=== PATIENT | female | born 1940 | race Caucasian/White ===

== ENCOUNTER → 2018-01-29 | Outpatient (CLI) | payer MEDICARE, OTHER ==
[2018-01-29 10:19] LABS: AUTOMATED NEUTROPHIL # 2.3 TH/MM3 (1.8-7.7); BASOPHIL % 0.4 % (0.0-2.0); EOSINOPHIL # 0.1 TH/MM3 (0-0.4); EOSINOPHIL % 1.7 % (0.0-4.0); HEMATOCRIT 36.7 % (35.0-46.0); HEMO FLAGS DIFF FINAL; HEMOGLOBIN 12.3 GM/DL (11.6-15.3); LYMPH % 27.9 % (9.0-44.0); MEAN CELL VOLUME 94.2 FL (80.0-100.0); MEAN CORPUSCULAR HEMOGLOBIN 31.6 PG (27.0-34.0); MEAN CORPUSCULAR HGB CONC 33.5 % (32.0-36.0); MEAN PLATELET VOLUME 9.4 FL (7.0-11.0); MONOCYTE # 0.3 TH/MM3 (0-0.9); PLATELET COUNT 170 TH/MM3 (150-450); RED CELL DISTRIBUTION WIDTH 13.9 % (11.6-17.2); WHITE BLOOD COUNT 3.7 TH/MM3 (4.0-11.0)
[2018-01-29 10:30] LABS: ALBUMIN 3.9 GM/DL (3.4-5.0); ANION GAP 5 MEQ/L (5-15); AST (GOT) 18 U/L (15-37); BICARBONATE 30.6 MEQ/L (21.0-32.0); BLOOD UREA NITROGEN 21 MG/DL (7-18); CALCIUM 9.3 MG/DL (8.5-10.1); CHLORIDE 108 MEQ/L (98-107); CHOLESTEROL 250 MG/DL (120-200); CREATININE 0.98 MG/DL (0.50-1.00); GLOMERULAR FILTRATION RATE 55 ML/MIN (>89); GLUCOSE,FASTING 89 MG/DL (74-99); POTASSIUM 4.7 MEQ/L (3.5-5.1); SODIUM (NA) 144 MEQ/L (136-145)
[2018-01-29 10:34] LABS: ALKALINE PHOSPHATASE 72 U/L (45-117); ALT (GPT) 21 U/L (10-53); CHOLESTEROL/ HDL RATIO 2.57 RATIO; LDL CHOLESTEROL 140 MG/DL (0-99); TOTAL BILIRUBIN ADULT 0.5 MG/DL (0.2-1.0); TOTAL PROTEIN 7.2 GM/DL (6.4-8.2); TRIGLYCERIDES 63 MG/DL (42-150)
== END ==
LOC: PLAB 06:44
DX: E78.2 Mixed hyperlipidemia (principal); I10 Essential (primary) hypertension; K21.9 Gastro-esophageal reflux disease without esophagitis; M81.0 Age-related osteoporosis without current pathological fracture
CPT/HCPCS: 36415; 80053; 80061; 82306; 85025

== ENCOUNTER → 2018-02-06 | Outpatient (CLI) | payer MEDICARE, OTHER ==
[~2018-02-06] MED LIST: ACET325 PO; CALCCHW9 PO; CARD8TAB6 PO; DIPH1TAB36 PO; FIORIC PO; FISH1200 PO; FOSA70TA PO; LUTE6TAB2 PO; MAGN250T5 PO; OXYC1SOL5 PO; RIVA10 PO; SCOP1PAT TD; TAB-TAB PO; Z.0.COMMODE-3:1; Z.0.WALKERFRONT
[2018-02-06 14:04] LABS: BILIRUBIN, URINE NEG (NEG); BLOOD, URINE NEG (NEG); GLUCOSE,URINE NEG (NEG); KETONE, URINE NEG (NEG); MUCUS URINE FEW /lpf (OCC); NITRITE,URINE NEG (NEG); SQUAMOUS EPITHELIAL CELL URINE 1 /hpf (0-5); URINE COLOR YELLOW (YELLW/STRAW); URINE LEUKOCYTE ESTERASE NEG (NEG)
== END ==
LOC: PLAB 09:13
PROVIDERS: ATTEND Family Medicine
DX: R31.21 Asymptomatic microscopic hematuria (principal)
CPT/HCPCS: 81001

== ENCOUNTER 2018-04-09 05:27 | Inpatient (IN) ==
[2018-04-09] MEDS ORDERED: Chlorhexidine Gluconate 2% 1 Pack (2 Cloths) TOPICAL SCH (06:15)
[2018-04-09] MEDS ORDERED: Metoprolol Tartrate 25 MG Tablet PO SCH (06:15)
[2018-04-09] MEDS ORDERED: Chlorhexidine 4% Topical 120 APPLIC/120 ML Bottle TOPICAL SCH (06:15)
[2018-04-09] MEDS ORDERED: Bupivacaine/Dextrose 0.75% Inj 2 ML Ampul ONE (06:31)
[2018-04-09] MEDS ORDERED: [UNRECOGNIZED DRUG - OTHER] T-DERMAL PRN (06:44)
[2018-04-09] MEDS ORDERED: Sodium Chlor 0.9% Inj 500 ML IV.SIG SCH (07:00)
[2018-04-09] MEDS ORDERED: SODIUM CHLOR 0.9% IV.SIG SCH ×2 (07:00→10:00)
[2018-04-09] MEDS ORDERED: TRANEXAMIC ACID IV.SIG SCH ×2 (07:00→10:00)
[2018-04-09] MEDS ORDERED: Sodium Chlor 0.9% Inj 40 ML, Bupivacaine Liposo PF 1.3% Inj 20 ML P-ARTICULR SCH ×2 (07:00)
[2018-04-09] MEDS ORDERED: ceFAZolin 2 GM Premix Inj 2 GM/50 ML PIGGYBACK IV.SIG SCH (07:00)
[2018-04-09] MEDS ORDERED: Scopalamine 1.5 MG Patch T-DERMAL PRN (08:37)
[2018-04-09] MEDS ORDERED: OMEGA DHA EPA FISH OIL PO SCH (09:00)
[2018-04-09] MEDS ORDERED: Aluminum/Magnesium/Simethacone Susp 30 ML UDC PO PRN (09:25)
[2018-04-09] MEDS ORDERED: Morphine Inj 4 MG/ML Vial IV.PUSH PRN (09:25)
[2018-04-09] MEDS ORDERED: Bisacodyl 10 MG Supp RECTAL PRN (09:25)
[2018-04-09] MEDS ORDERED: Tranexamic Acid Inj 0 MG in Sodium Chlor 0.9% Inj 100 ML IV.SIG ONE (09:25)
[2018-04-09] MEDS ORDERED: Post-op Orders (for Pharmacy) OTHER STA (09:25)
[2018-04-09] MEDS ORDERED: Acetaminophen 325 MG Tablet PO PRN (09:25)
--- NOTE | 2018-04-09 09:34 | P.OP ---
- Preoperative Diagnosis (1) Primary osteoarthritis of left hip - Postoperative Diagnosis (1) Primary osteoarthritis of left hip Date of procedure: 04/09/18 Procedure: Left total hip arthroplasty using Patterson prosthesis. Anesthesia: GETA, local (With Exparel) Surgeon: Carmelo Floyd MD Groundskeeper: ALEXA Castro Estimated blood loss (mL): 150 Pathology: none sent Operation and Findings: Indications and Findings: This 77-year-old woman has had long-standing pain in her left hip nonresponsive to conservative measures including anti-inflammatory agents, analgesics, activity modification and the use of ambulatory aids. Physical findings showed limitation of range of motion in the hip with tenderness on range of motion and antalgic gait. X-rays showed severe osteoarthritis in the hip with eburnation, osteophytes and degenerative cysts. Operative findings: There is severe osteoarthritis in the left hip with loss of articular cartilage to expose subchondral bone. There was subchondral sclerosis. There are osteophytes. Implants: The acetabular component was a Tritanium cluster shell size 50 mm external diameter with a 36 mm inner diameter, 0 lip, X3 polyethylene liner. The femoral component was Accolade 2 with a 127 neck angle. The femoral head was Biolox Delta, 36 mm external diameter with a -2 mm offset. The patient was brought to the clean air operating suite and a general endotracheal anesthetic was administered. The patient was positioned into a lateral position with the operative hip up on a Biomet lateral positioner. The hip and lower extremity were prepped with alcohol, Hibiclens and ChloraPrep and draped in the usual manner with the hip draped free. Patient received prophylactic antibiotics preoperatively. The patient also received tranexamic acid preoperatively. An appropriate timeout procedure was carried out. An incision was made from the midportion of the greater trochanter proximally and posteriorly paralleling the fibers of the gluteus mildred. The incision was deepened through subcutaneous tissues down to the fascia gabo and gluteus fascia. The gluteus fascia was then split longitudinally in line with its fibers up to the upper portion of the fascia gabo. With wound towels in place, the Charnley retractor was inserted. The sciatic nerve was identified and protected throughout the procedure. Dissection was then carried down to the interval between the gluteus minimus and the piriformis. A retractor was inserted. The piriformis and obturator conjoined tendon was released from the greater trochanter and reflected off the capsule. A capsulotomy was made longitudinally along the femoral neck to the base of the femoral neck and then curved distally along the posterior aspect of the greater trochanter. The hip was internally rotated. Further release of the external rotators was carried out exposing the hip. The hip was dislocated. The femoral neck was transected at the appropriate level using the oscillating saw placement of appropriate retractors. The femoral head was removed. Preparation of the femur was initiated with a box osteotome followed by a curet to identify the medullary canal. Broaching was then initiated with the size 0 broach and went in 1 size increments up to size 2. The broach handle was removed. The femoral neck was then trimmed with a calcar planar. Attention was then directed to the acetabulum. Soft tissues were debrided from the acetabulum. Retractors were placed about the acetabulum. Reaming was then initiated with the 43 millimeter reamer and went in 1-2 mm increments up to the 50 millimeter diameter reamer. A trial reduction with the 50 millimeter trial prosthesis was carried out. When this was deemed to be appropriate, the trial prosthesis was removed. The acetabulum was irrigated and cleaned. The actual prosthesis as noted above was impacted into place and seated appropriately. Drill holes were made and sounded. Appropriate sized screws were inserted to stabilize the acetabulum further. The liner as noted above was inserted into the acetabular shell and impacted into place. Osteophytes were trimmed from the acetabulum. Local anesthetic was administered throughout the area of the acetabulum and anterior aspect of the femur. The trial neck was placed on the broach for the above-noted prosthesis. The femoral head trial was placed onto the femoral neck . A trial reduction was carried out. Adjustment was made as needed. The stability, leg length and motion were excellent. There was no pistoning. The trial prosthesis was removed. The broach was removed. The femoral component was impacted into the medullary canal of the femur after irrigation and suctioning. When this was appropriately seated a trial reduction was again carried out with the trial prosthesis. There was no pistoning. The leg length was appropriate. The stability and motion were excellent. The trial prosthesis was then removed. After cleaning and drying the trunion of the femoral component, the above-noted femoral head was impacted onto the trunnion. The hip was reduced. The stability and mobility were again checked along with leg lengths as noted above. The hip was positioned appropriately and closure commenced after the remainder of the local anesthetic was injected throughout the hip. The external rotators and capsule were repaired with #1 Vicryl interrupted transosseous sutures with a Krakw technique to reattach the external rotators and capsule to the posterior aspect of the greater trochanter. The capsule itself on the superior aspect was closed with #1 Vicryl interrupted [id number] sutures. The sciatic nerve was inspected. The fascia gabo and gluteus fascia were repaired with #1 Vicryl interrupted [id number] sutures. The subcutaneous tissues were closed with 2-0 Vicryl interrupted simple sutures with buried knots. The skin was closed with a continuous subcuticular closure of 4-0 Monocryl. The wound was then approximated with Dermabond Prineo. A dry sterile dressing was applied to the hip. A knee immobilizer was applied to the leg. The patient was transferred from the operating room to the recovery room in satisfactory condition having tolerated the procedure well. Counts are correct. Specimens: None. Estimated blood loss: 150 mL
[2018-04-09] MEDS ORDERED: fentaNYL Citrate Inj 100 MCG/2 ML Ampul ONE (09:45)
--- NOTE | 2018-04-09 09:54 | P.DCO ---
- Physical Therapy Physical Therapy: Gait training Hip: Total hip, Protocol: Left, Posterior hip precautions, Progress to weight bearing Canvas Knee Splint: When in bed with 2 pillows between thighs Left Lower Extremity Weight Bearing: Weight bearing as tolerated Left Lower Extremity Range of Motion: Active ROM - Nursing Dressing changes: Daily dressing change, Coverderm/Primapore Additional instructions: Do not remove Dermabond Prineo. - Certification Need for Home Health services: I have seen patient Jesi Chang on 04/09/18. My clinical findings support the need for the requested home health care services because: Need for Home Health Services: Limited ability to care for self, High risk of falls Homebound Certification: I certify that my clinical findings support that this patient is homebound because: Homebound Certification: Post-op weakness, Unsteady gait/balance, Unsafe to leave home unassisted
--- NOTE | 2018-04-09 11:17 | XR ---
EXAM DATE: 04/09/2018 10:39 AM EDT AGE/SEX: 77 years / Female INDICATIONS: Post op left hip surgery CLINICAL DATA: This is the patient's initial encounter. Patient reports that signs and symptoms have been present for 1 day and indicates a pain score of 0/10. MEDICAL/SURGICAL HISTORY: None. None. COMPARISON: POI, CT ABDOMEN AND PELVIS W/ CONTRAST, 01/09/2015. . FINDINGS: AP of the pelvis and lateral view of the left hip demonstrates metallic hardware in place at the left hip joint with a single screw in the acetabular component and a noncemented femoral component. There is adjacent soft tissue air, as expected. No unexpected finding is visualized. There is mild osteoar thritis of the right hip joint. CONCLUSION: Expected changes following recent left total hip arthroplasty, as above. Electronically signed by: Barry Lewis MD 04/09/2018 11:15 AM EDT
[2018-04-09] MEDS ORDERED: Neostigmine Inj 5 MG/5 ML Syringe IV.PUSH ONE (12:00)
[2018-04-09] MEDS ORDERED: Glycopyrrolate Inj 1 MG/5 ML Syringe IV.PUSH ONE (12:00)
[2018-04-09] MEDS ORDERED: Lidocaine PF 1% Inj 5 ML Syringe INFILTRATN ONE (12:00)
[2018-04-09] MEDS ORDERED: Phenylephrine/NS 1000 MCG/10ML Syringe IV.PUSH ONE (12:00)
--- NOTE | 2018-04-09 15:09 | P.CON ---
History of Present Illness Service: [facility] Consult date: 04/09/18 Requesting Physician: Carmelo Floyd Reason for Consult: Assist with medical management post op Primary Care Provider: Mone Hines MD Family Provider: Mone Hines MD Chief Complaint: Left Hip Pain History of Present Illness: Patient is a 77 yo female with PMHX of HTN, GERD, migraines, hiatal hernia who came in for elective surgery for Left hip osteoarthritis. She is S/P Left Total Hip Arthroplasty by Dr. Floyd, 04/09/18. Patient states she is doing okay aside from left hip pain. Unable to tolerate sitting up for possible palliative time. States that she needs more pain medication, rated pain as 10/ 10, aggravated by movement, aggravated by sitting up, unrelieved by previous pain medication, pain is described as sharp, aching. Otherwise, denies SOB/ dyspnea. Denies chest pain, palpitations, headaches, dizziness. Denies fevers, chills, n/v/d. Review of Systems All other systems reviewed negative except as stated in HPI [facility] - History History Provided By: Patient - Medical History Medical History: Medical History (Last Updated 04/09/18 @ 16:10 by JOE Resendez) Neuropathy Hypertension Left hip pain Migraine - Surgical History Surgical History: Surgical History (Last Updated 03/26/18 @ 11:27 by Renetta Montez RN) History of arthroplasty of left knee History of partial hysterectomy Hx of breast biopsy Hx of inguinal hernia surgery Hx of sinus surgery - Family History Family History: Family History (Last Updated 04/09/18 @ 15:27 by JOE Resendez) Mother Family history of breast cancer Father Stroke Heart attack - Tobacco History Second Hand Smoke Exposure: Yes Smoking Status: Never smoker - Alcohol History How Often Do You Have a Drink Containing Alcohol: Monthly or less - Substance Use History Substance History: No History of Abuse - Travel History Recent Travel in the [place] Within the Last 8 Weeks: No Recent Travel Out of the Country Within the Last 8 Weeks: No Medications and Allergies Active Medications: Active Medications Acetaminophen (Tylenol) 650 mg PO Q6H PRN PRN Reason: Pain Less Than 3 On Scale Acetaminophen/Butalbital/Caffeine (Fioricet 50-325-40) 1 tab PO Q4H PRN PRN Reason: Migraine Headache Hydrocodone Bitart/Acetaminophen ([place] 7.5/325) 1 tab PO Q4H PRN PRN Reason: PAIN SCALE 4 TO 6 MODERATE Last Admin: 04/09/18 14:28 Dose: 1 tab Hydrocodone Bitart/Acetaminophen ([place] 7.5/325) 2 tab PO Q6H PRN PRN Reason: PAIN SCALE 7 TO 10 SEVERE Al Hydrox/Mg Hydrox/Simethicone (Mag-Al Plus Susp Liq) 30 ml PO Q6H PRN PRN Reason: INDIGESTION Al Hydroxide/Mg Hydroxide (Milk Of Magnesia Liq) 30 ml PO BID PRN PRN Reason: Mild Constipation Aspirin (Aspirin Chew) 81 mg PO BID [facility] Bisacodyl (Dulcolax Supp) 10 mg RECTAL DAILY PRN PRN Reason: SEVERE CONSITIPATION Chlorhexidine Gluconate (Hibiclens 4% Topical) 1 applicatio TOPICAL ONCE [facility] Stop: 04/13/18 06:14 Chlorhexidine Gluconate (Chlorhexidine 2% Cloth) 3 pack TOPICAL [employer] [facility] Stop: 04/12/18 06:11 Cyanocobalamin (Vitamin B12) 1,000 mcg PO DAILY [facility] Diphenhydramine HCl (Benadryl) 25 mg PO Q6H PRN PRN Reason: ITCHING Doxazosin Mesylate (Cardura) 4 mg PO HS [facility] Ferrous Sulfate (Ferosul) 325 mg PO DAILY [facility] Gabapentin (Neurontin) 600 mg PO HS [facility] Tranexamic Acid 613 mg/ Sodium (Chloride) 106.13 mls @ 200 mls/hr IV.SIG ONCE [facility] Stop: 04/09/18 16:00 Last Admin: 04/09/18 10:12 Dose: 200 mls/hr Cefazolin Sodium/Dextrose (Ancef 2 Gm Premix Inj) 2 gm in 50 mls @ 100 mls/hr IV.SIG [employer] [facility] Stop: 04/10/18 06:59 Last Infusion: 04/09/18 07:34 Dose: Infused Lactated Ringer's (Lr 1000 Ml Inj) 1,000 mls @ 30 mls/hr IV.SIG .Q24H [facility] Stop: 04/12/18 06:11 Last Admin: 04/09/18 06:15 Dose: 30 mls/hr Sodium Chloride (Ns Inj) 500 mls @ 30 mls/hr IV.SIG .Q10H [facility] Stop: 04/12/18 06:11 Cefazolin Sodium 1,000 mg/ (Sodium Chloride) 100 mls @ 200 mls/hr IV.SIG Q6H [facility] Stop: 04/10/18 01:29 Last Admin: 04/09/18 12:30 Dose: 200 mls/hr Lactated Ringer's (Lr 1000 Ml Inj) 1,000 mls @ 80 mls/hr IV.CONT .[id number] [facility] Last Admin: 04/09/18 10:00 Dose: 80 mls/hr Ketorolac Tromethamine (Toradol Inj) 15 mg IV.PUSH Q6H [facility] Stop: 04/11/18 03:31 Lactulose (Lactulose Liq) 30 ml PO DAILY PRN PRN Reason: SEVERE CONSITIPATION Metoprolol Tartrate (Lopressor) 25 mg PO [employer] [facility] Stop: 04/12/18 06:11 Miscellaneous Information (Mis Nursing Information) 1 each OTHER UNSCH PRN PRN Reason: SEE LABEL COMMENTS Stop: 04/10/18 09:39 Morphine Sulfate (Morphine Inj) 2 mg IV.PUSH Q3H PRN PRN Reason: BREAKTHROUGH PAIN Multivitamins (Theragran) 1 tab PO DAILY [facility] Ondansetron HCl (Zofran Odt) 4 mg PO Q6H PRN PRN Reason: NAUSEA OR VOMITING Patch Removal (Remove Old Patch) 1 each T-DERMAL Q72H PRN PRN Reason: NAUSEA Povidone Iodine (Betadine 5% Antisepsis Kit) 1 applicatio EACH NARE [employer] [facility] Stop: 04/12/18 06:11 Scopolamine (Transderm-Scop 1.5 Mg Patch.72hr) 1 patch T-DERMAL Q72H PRN PRN Reason: PATCH REMOVAL Senna/Docusate Sodium (Sue-Colace) 1 tab PO BID [facility] Sennosides (Senokot) 17.2 mg PO BID PRN PRN Reason: Moderate Constipation Sodium Chloride (Ns Flush) 2 ml IV.FLUSH BID [facility] Sodium Chloride (Ns Flush) 2 ml IV.FLUSH PRN PRN PRN Reason: FLUSH AFTER USING IV ACCESS Verapamil HCl (Isoptin Sr) 360 mg PO HS [facility] Vitamin D (Vitamin D3) 1,000 unit PO DAILY [facility] Allergies Allergy/AdvReac Type Severity Reaction Status Date / Time gluten Allergy Severe heartburn Verified 04/09/18 06:30 gi upset Sulfa (Sulfonamide Allergy Severe LELAND Verified 04/09/18 06:30 Antibiotics) BAYLEE'S/DEHYDRATION/FEVER Home Medications Medication Instructions Recorded Confirmed Type acetaminophen [Tylenol Extra 500 mg PO Q6H PRN 03/26/18 04/09/18 History Strength] acetaminophen [Tylenol] 325 mg PO Q4H PRN 03/26/18 03/26/18 History rwdmyfn-qdqhszyevgbub-lzpxiext 1 tab PO Q4-6H PRN 03/26/18 04/09/18 History [Excedrin Extra Strength] xxsulwomfm-nwrpppfyiqtnd-wvru 1 cap PO Q4H PRN 03/26/18 04/09/18 History [Fioricet] mezamjvclh-qngqcabrhaxok-kkmc 1 cap PO Q4H PRN 03/26/18 04/09/18 History [Fioricet] calcium carbonate [Calcium 600] 900 mg PO DAILY 03/26/18 04/09/18 History cholecalciferol (vitamin D3) 1,000 unit PO DAILY 03/26/18 04/09/18 History [Vitamin D3] cyanocobalamin (vitamin B-12) 1,000 mcg PO DAILY 03/26/18 04/09/18 History [Vitamin B-12] doxazosin 4 mg PO HS 03/26/18 04/09/18 History ferrous sulfate 325 mg PO DAILY 03/26/18 04/09/18 History gabapentin 600 mg PO HS 03/26/18 04/09/18 History lutein 6 mg PO DAILY 03/26/18 04/09/18 History magnesium 250 mg PO DAILY 03/26/18 04/09/18 History multivit with min-folic acid 1 tab PO DAILY 03/26/18 04/09/18 History [Adult One Daily Multivitamin] omega 2-rqz-qkj-fish oil [Fish Oil] 1,000 units PO DAILY 03/26/18 04/09/18 History scopolamine base [Transderm-Scop] 1 patch TRANSDERMAL Q72H PRN 03/26/18 History verapamil 360 mg PO HS 03/26/18 04/09/18 History Physical Exam Vital signs: Vital Signs 04/09/18 06:34 04/09/18 09:32 04/09/18 09:35 Temperature 97.6 F 94.6 F L 94.6 F L Pulse Rate 60 71 Respiratory Rate 20 10 L Blood Pressure 155/70 H 116/55 L Pulse Oximetry 96 97 04/09/18 09:45 04/09/18 10:00 04/09/18 10:15 Temperature Pulse Rate 63 62 62 Respiratory Rate 12 12 12 Blood Pressure 112/57 L 108/52 L 115/55 L Pulse Oximetry 98 96 99 04/09/18 10:30 04/09/18 10:45 04/09/18 11:00 Temperature Pulse Rate 60 62 62 Respiratory Rate 12 17 17 Blood Pressure 117/58 L 114/57 L 115/58 L Pulse Oximetry 98 99 97 04/09/18 11:15 04/09/18 11:30 04/09/18 11:37 Temperature 97.4 F L Pulse Rate 63 64 Respiratory Rate 21 23 Blood Pressure 113/57 L 112/57 L Pulse Oximetry 97 98 04/09/18 11:45 04/09/18 12:00 04/09/18 12:15 Temperature Pulse Rate 62 65 65 Respiratory Rate 20 17 17 Blood Pressure 113/59 L 109/58 L 114/58 L Pulse Oximetry 93 L 96 97 Intake & Output 04/08/18 04/09/18 04/09/18 18:59 06:59 18:59 Intake Total 2156.13 / 2156.13 Output Total 150 / 150 Balance / Weight 61.3 kg Intake: IV 156.13 / 156.13 Cyklokapron Inj 613 MG In NS 106.13 / 106.13 Inj 100 ML @ 200 mls/hr IV.SIG ONCE [facility] Rx#:[id number] Ancef 2 GM Premix Inj 2 gm In 50 / 50 50 ml @ 100 mls/hr IV.SIG [employer] [facility] Rx#:[id number] Anesthesia Amount 1999 Output: Estimated Blood Loss 150 / 150 Other: Date of Last Bowel Movement 04/08/18 Weight On Admission 61.3 kg Narrative: GENERAL: This is a well-nourished, well-developed patient, in no apparent distress. SKIN: Warm and dry HEENT: Normocephalic. Pupils equal round and reactive. Nose without bleeding. Airway patent. NECK: Trachea midline. CARDIOVASCULAR: Regular rate and rhythm without murmurs, gallops, or rubs. RESPIRATORY: Clear to auscultation. Breath sounds equal bilaterally. No wheezes , rales, or rhonchi. GASTROINTESTINAL: Abdomen soft, non-tender, nondistended. Bowel Sounds normoactive x4. MUSCULOSKELETAL: Extremities without clubbing, cyanosis. Left lower extremity trace edema. NEUROLOGICAL: Awake and alert. Oriented to time, place, person. No focal neuro deficit. Moves all extremities. Normal speech. Assessment and Plan - Plan Patient is a 77 yo female with PMHX of HTN, GERD, migraines, hiatal hernia who came in for elective surgery for Left hip osteoarthritis. Status post left total hip arthroplasty, Dr. Floyd, 04/09/18 Left hip osteoarthritis, pain -Orthopedic surgery following -Pain management with bowel regimen, currently on [place] 7.5/325 mg with breakthrough medication morphine and also on Toradol. Will readjust medication to Percocet if continues to have pain with [place]. -PT eval and treat HTN -Continue home medications -Monitor BP trend Migraines -Continue home medication, Fioricet History of GERD resolved with Having gluten-free diet. DVT prop, SCDs, per surgery ASA BID Code Status: Full code Discussed Condition With: Patient, , nursing Discharge Planning: DC disposition by orthopedics
[2018-04-09] MEDS: Ketorolac Inj 30 MG/ML (IVP) Vial IV.PUSH SCH ×3 (15:20→22:05)
[2018-04-09] MEDS: Ferrous Sulfate 325 MG Tablet PO SCH (15:44)
[2018-04-09] MEDS: Senna/Docusate Sodium 8.6/50 MG Tablet PO SCH (20:11)
[2018-04-09] MEDS: Doxazosin 4 MG Tablet PO SCH (20:12)
[2018-04-09] MEDS: Gabapentin 300 MG Capsule PO SCH (20:12)
[2018-04-10 06:20] LABS: Hematocrit 29.8 % (35.0-46.0); Hemoglobin 10.1 gm/dL (11.6-15.3)
--- NOTE | 2018-04-10 06:21 | P.PNOP ---
Subjective Interval history: She has no pain if she is laying still. If she does have pain it is usually when she is moving Yesterday, she walked 40 feet with the physical therapist. Physical Exam Vital signs: Vital Signs 04/09/18 06:34 04/09/18 09:32 04/09/18 09:35 Temperature 97.6 F 94.6 F L 94.6 F L Pulse Rate 60 71 Respiratory Rate 20 10 L Blood Pressure 155/70 H 116/55 L Pulse Oximetry 96 97 04/09/18 09:45 04/09/18 10:00 04/09/18 10:15 Temperature Pulse Rate 63 62 62 Respiratory Rate 12 12 12 Blood Pressure 112/57 L 108/52 L 115/55 L Pulse Oximetry 98 96 99 04/09/18 10:30 04/09/18 10:45 04/09/18 11:00 Temperature Pulse Rate 60 62 62 Respiratory Rate 12 17 17 Blood Pressure 117/58 L 114/57 L 115/58 L Pulse Oximetry 98 99 97 04/09/18 11:15 04/09/18 11:30 04/09/18 11:37 Temperature 97.4 F L Pulse Rate 63 64 Respiratory Rate 21 23 Blood Pressure 113/57 L 112/57 L Pulse Oximetry 97 98 04/09/18 11:45 04/09/18 12:00 04/09/18 12:15 Temperature 97.6 F Pulse Rate 62 65 65 Respiratory Rate 20 18 17 Blood Pressure 113/59 L 134/62 114/58 L Pulse Oximetry 93 L 100 97 04/09/18 16:00 04/09/18 16:38 04/09/18 20:00 Temperature 97.2 F L 97.2 F L Pulse Rate 55 L 66 Respiratory Rate 18 17 Blood Pressure 159/69 H 136/64 Pulse Oximetry 100 97 100 04/10/18 00:00 04/10/18 04:00 Temperature 97.3 F L 97.7 F Pulse Rate 81 85 Respiratory Rate 17 17 Blood Pressure 142/64 H 145/69 H Pulse Oximetry 97 98 Intake & Output 04/09/18 04/09/18 04/10/18 06:59 18:59 06:59 Intake Total 2736.13 / 2736.13 340 / 340 Output Total 151 / 151 Balance 2585.13 / 2585.13 340 / 340 Weight 61.3 kg 61.4 kg Intake: IV 256.13 / 256.13 100 / 100 Cyklokapron Inj 613 MG In NS 106.13 / 106.13 Inj 100 ML @ 200 mls/hr IV.SIG ONCE [facility] Rx#:[id number] Ancef 2 GM Premix Inj 2 gm In 50 / 50 50 ml @ 100 mls/hr IV.SIG SET UP [employer]CH[employer]ACHINES [facility] Rx#:[id number] Ancef Inj 1,000 MG In NS Inj 100 / 100 100 / 100 100 ML @ 200 mls/hr IV.SIG Q6H [facility] Rx#:[id number] Oral 480 / 480 240 / 240 Anesthesia Amount 1999 Output: Urine Estimated Blood Loss 150 / 150 Other: # Voids 5 Date of Last Bowel Movement 04/08/18 # Bowel Movements 0 Weight On Admission 61.3 kg Narrative: She is resting comfortably, supine in bed. The neurovascular status is intact. The dressing is dry and intact. Results - Labs CBC & Chem 7: 04/10/18 05:40 Laboratory Results - last 24 hr 04/09/18 06:15 Blood Type A Positive Antibody Screen Negative - Imaging Impressions Hip X-Ray 04/09/18 09:22 CONCLUSION: Expected changes following recent left total hip arthroplasty, as above. X-rays show good position and alignment of the prosthesis. Assessment and Plan - Ortho Post Op Day # 1 - Problem List (1) Status post total hip replacement, left Code(s): Z96.642 - Presence of left artificial hip joint Status: Acute Plan: Continue postop care and PT. - Assessment and Plan Condition: Good. Orthopedically stable. DVT prophylaxis: TEDs, aspirin, sequentials. Discharge plans: Home with home health care. An appointment was scheduled through the office. Prescriptions: [place] 7.5/325; Patient is having significant pain caused by recent surgery which will last more than 3 days. Trial of Tylenol has not helped. I believe that it is medically necessary to treat patients pain because it is affecting patients ability to participate in postoperative rehabilitation and perform activities of daily living in a comfortable and efficient manner.
--- NOTE | 2018-04-10 06:35 | P.DS ---
Date of admission: 04/09/18 05:27 Primary care physician: Mone Hines MD Attending physician on discharge: Carmelo Floyd Anticipated date of discharge: 04/12/18 Brief History from admission: This 77-year-old woman has had long-standing pain in her left hip secondary to osteoarthritis. She has been nonresponsive to conservative, nonoperative care. She has used external supports for ambulation. She has an antalgic gait preoperatively with pain on motion and crepitation on motion. X-ray showed severe osteoarthritis with loss of articular cartilage to [id number], eburnation and osteophytes. DS: Diagnosis - Discharge Diagnosis (1) Status post total hip replacement, left Status: Acute Diagnosis: Principal (2) Primary osteoarthritis of left hip Status: Resolved Diagnosis: Principal DS: Medications - Discharge Medications Prescriptions: hydrocodone-acetaminophen 1 tab PO Q4H PRN 7 Days #42 tab PRN Reason: Pain DS: Summary Hospital Course: The patient was admitted as noted above. The above noted operative procedure was carried out that day. Preoperatively prophylactic antibiotics were administered Ancef according to protocol. These were continued postoperatively. The patient also received tranexamic acid to help with hemostasis according to protocol. In the postanesthesia care unit mechanical methods of DVT prophylaxis in the form of JULI stockings and sequentials were initiated. Physical therapy was initiated on the day of surgery. On postoperative day #1 physical therapy continued. DVT prophylaxis with aspirin 81 mg was initiated at this time. On postoperative day #2, physical therapy continued. She was having some difficulty with gastrointestinal symptoms, primarily constipation. This was discussed with the nurse. On postoperative day #3, physical therapy continued. She had previously had continued gastrointestinal symptoms with constipation, nausea and vomiting. The evening prior, she had a migraine headache which precluded discharge. On postoperative day #4, physical therapy continued. The evening before, she did better, having been able to move her bowels. The patient continued physical therapy throughout the hospitalization. The distance walked and range of motion improved throughout the hospitalization since that she was able to walk 170 feet with physical therapy. The patient was discharged on postoperative day 4 with the disposition being to home with home health care. An appointment for follow-up was made prior to admission. - Time Spent with Patient Total time spent providing and/or coordinating discharge services: - Quality: VTE Deep Vein Thrombosis/Pulmonary Embolism Present on Admission: No Exam Vital signs: Vital Signs 04/09/18 06:34 04/09/18 09:32 04/09/18 09:35 Temperature 97.6 F 94.6 F L 94.6 F L Pulse Rate 60 71 Respiratory Rate 20 10 L Blood Pressure 155/70 H 116/55 L Pulse Oximetry 96 97 04/09/18 09:45 04/09/18 10:00 04/09/18 10:15 Temperature Pulse Rate 63 62 62 Respiratory Rate 12 12 12 Blood Pressure 112/57 L 108/52 L 115/55 L Pulse Oximetry 98 96 99 04/09/18 10:30 04/09/18 10:45 04/09/18 11:00 Temperature Pulse Rate 60 62 62 Respiratory Rate 12 17 17 Blood Pressure 117/58 L 114/57 L 115/58 L Pulse Oximetry 98 99 97 04/09/18 11:15 04/09/18 11:30 04/09/18 11:37 Temperature 97.4 F L Pulse Rate 63 64 Respiratory Rate 21 23 Blood Pressure 113/57 L 112/57 L Pulse Oximetry 97 98 04/09/18 11:45 04/09/18 12:00 04/09/18 12:15 Temperature 97.6 F Pulse Rate 62 65 65 Respiratory Rate 20 18 17 Blood Pressure 113/59 L 134/62 114/58 L Pulse Oximetry 93 L 100 97 04/09/18 16:00 04/09/18 16:38 04/09/18 20:00 Temperature 97.2 F L 97.2 F L Pulse Rate 55 L 66 Respiratory Rate 18 17 Blood Pressure 159/69 H 136/64 Pulse Oximetry 100 97 100 04/10/18 00:00 04/10/18 04:00 Temperature 97.3 F L 97.7 F Pulse Rate 81 85 Respiratory Rate 17 17 Blood Pressure 142/64 H 145/69 H Pulse Oximetry 97 98 Intake & Output 04/09/18 04/09/18 04/10/18 06:59 18:59 06:59 Intake Total 2736.13 / 2736.13 340 / 340 Output Total 151 / 151 Balance 2585.13 / 2585.13 340 / 340 Weight 61.3 kg 61.4 kg Intake: IV 256.13 / 256.13 100 / 100 Cyklokapron Inj 613 MG In NS 106.13 / 106.13 Inj 100 ML @ 200 mls/hr IV.SIG ONCE SIA Rx#:[id number] Ancef 2 GM Premix Inj 2 gm In 50 / 50 50 ml @ 100 mls/hr IV.SIG DISPATCH LEAD SIA Rx#:[id number] Ancef Inj 1,000 MG In NS Inj 100 / 100 100 / 100 100 ML @ 200 mls/hr IV.SIG Q6H SIA Rx#:[id number] Oral 480 / 480 240 / 240 Anesthesia Amount 1999 Output: Urine Estimated Blood Loss 150 / 150 Other: # Voids 5 Date of Last Bowel Movement 04/08/18 # Bowel Movements 0 Weight On Admission 61.3 kg Narrative: She is resting comfortably, supine in bed. The neurovascular status is intact. The dressing is dry and intact. Results Procedures completed during hospitalization: Left total hip arthroplasty using Jillian prosthesis on 04/09/2018 Labs on day of discharge: Labs from last 24 hours 04/10/18 04/09/18 05:40 06:15 Hgb 10.1 L Hct 29.8 L Blood Type A Positive Antibody Screen Negative - Impressions ITS Impressions Hip X-Ray 04/09/18 09:22 CONCLUSION: Expected changes following recent left total hip arthroplasty, as above. Discharge Plan - Discharge Disposition Patient Disposition: /Home Health Service - Discharge Condition Condition: Stable - Discharge Order Discharge Orders: Discharge Order (Routine); Ordered 04/10/18 Ordered By: Carmelo Floyd - Discharge Details Anticipated Discharge Date: 04/10/18 - Physicians Team Primary Care Provider: Mone Hines Attending Provider: Carmelo Floyd Other Providers: Mich Perez DO - Rxs /Orders / Referrals /Forms Prescriptions: New hydrocodone-acetaminophen 7.5-325 mg Tablet 1 tab PO Q4H PRN (Reason: Pain) 7 Days Qty: 42 RF: 0 Continue acetaminophen [Tylenol Extra Strength] 500 mg Tablet 500 mg PO Q6H PRN (Reason: PAIN OR INSOMNIA) acetaminophen [Tylenol] 325 mg Tablet 325 mg PO Q4H PRN (Reason: Pain) [id number]-awjckbpqipcvs-ixabarba [Excedrin Extra Strength] 250-250-65 mg Tablet 1 tab PO Q4-6H PRN (Reason: Pain) pidpqrlany-cvukdmbkkjozk-hbkt [Fioricet] 50-300-40 mg Capsule 1 cap PO Q4H PRN (Reason: Migraine Headache) wazaqhlgbc-ndgygdjvkjljv-gmcs [Fioricet] 50-300-40 mg Capsule 1 cap PO Q4H PRN (Reason: Migraine Headache) calcium carbonate [Calcium 600] 600 mg calcium (1,500 mg) Tablet 900 mg PO DAILY cholecalciferol (vitamin D3) [Vitamin D3] 1,000 unit Tablet 1,000 unit PO DAILY cyanocobalamin (vitamin B-12) [Vitamin B-12] 1,000 mcg Tablet 1,000 mcg PO DAILY doxazosin 4 mg Tablet 4 mg PO HS ferrous sulfate 325 mg (65 mg iron) Tablet 325 mg PO DAILY gabapentin 600 mg Tablet 600 mg PO HS lutein 6 mg Tablet 6 mg PO DAILY magnesium 250 mg Tablet 250 mg PO DAILY multivit with min-folic acid [Adult One Daily Multivitamin] 0.4 mg tablet 1 tab PO DAILY omega 5-tbm-kwb-fish oil [Fish Oil] 1,000 mg (120 mg-180 mg) Capsule 1,000 units PO DAILY scopolamine base [Transderm-Scop] 1 mg over 3 days Patch 3 Day 1 patch TRANSDERMAL Q72H PRN (Reason: Motion Sickness) verapamil 360 mg Capsule,Ext Rel. Pellets 24 Hr 360 mg PO HS Referrals: Mone Hines MD [Primary Care Provider] - See Instructions - Discharge Instructions Additional Instructions: Make or keep your follow up appointments as directed. Take medications as instructed. Maintain safety precautions to prevent falls. - Post Discharge Care Plan Care Plan Goals: Discharge Care Plan Goals for Total Hip Replacement You had a hip replacement surgery. This means your natural hip was replaced with an artificial joint (prosthesis). You may be recovering at home or in a rehabilitation facility. Either way, you must take care of your new hip. Here are some goals to help you heal well. Directions to Meet your Goals: 1. Activity & Exercises: * Take pain medicine as directed by your doctor. * Dont drive until your doctor says its OK. And never drive while taking opioid pain medicine. * Wear the support stockings you were given in the hospital as directed by your surgeon. * Dont sit for more than 30 to 45 minutes at one time. * Dont lean forward while sitting. * Dont cross your legs. * Keep your feet flat on the floor. Dont turn your foot or leg inward. This stresses your hip joint. * Use an elevated toilet seat for 6 weeks after surgery. * Nap if you are tired, but dont stay in bed all day. * Sit on a firm cushion when you ride in a car and avoid sitting too low. Try not to bend your hip too much when getting in and out of the car. 2. Prevent Falls/Injury: * Follow your doctors orders regarding how much weight to put on the affected leg. * Dont bend at the hip when you bend over. Don't bend at the waist to put on socks and shoes. And avoid picking up items from the floor. * Use a cane, crutches, a walker, or handrails until your balance, flexibility, and strength improve. And remember to ask for help from others when you need it. * Free up your hands so that you can use them to keep balance. Use a mona pack , apron, or pockets to carry things. * Arrange your household to keep the items you need handy. Keep everything else out of the way. * Remove items that may cause you to fall, such as throw rugs and electrical cords. * Use nonslip bath mats, grab bars, an elevated toilet seat, and a shower chair in your bathroom * Sit on a shower stool or chair when you shower to keep from falling. 3. Precautions: * Prevent infection. Any infection will need to be treated immediately. Call your doctor right away if you think you might have an infection. * Tell your dentist that you have an artificial joint and take antibiotics as prescribed before any dental work. * Tell all your healthcare providers about your artificial joint before any medical procedure. * Maintain a healthy weight. Get help to lose any extra pounds. Added body weight puts stress on the joints. 4. Incision Care: * Prevent infection by washing your hands often. If an infection occurs, it will need to be treated right away. * Call your doctor right away if you think you may have an infection. Symptoms include a fever or an incision that leaks white, green, or yellow fluid. * Don't soak your incision in water until your doctor says its OK. This means no hot tubs, bathtubs, or swimming pools. * Follow your doctor's instructions for changing the dressing. * Dont rub the incision, or apply creams or lotions to it. * If you notice any redness or drainage around the bandage site, contact your surgeon's office immediately. 5. Follow-Up: Do Not miss your follow-up appointment. Keep up with all your appointments and yearly check ups When to call your doctor: Call your doctor right away if you have: Hip pain gets worse Pain or swelling in your calf or leg not related to your incision Tenderness or redness in your calf Fever of 100.4F (38C) or higher, or as directed by your healthcare provider Shaking chills Swelling or redness at the incision site gets worse Fluid draining from the incision Call 911: Call 911 right away if you have: Chest pain Shortness of breath Any pain or tenderness in your calf
[2018-04-10] MEDS: Ketorolac Inj 30 MG/ML (IVP) Vial IV.PUSH SCH ×4 (07:31→21:27)
[2018-04-10] MEDS: Senna/Docusate Sodium 8.6/50 MG Tablet PO SCH ×2 (08:16→21:25)
[2018-04-10] MEDS: Ferrous Sulfate 325 MG Tablet PO SCH (08:17)
--- NOTE | 2018-04-10 13:00 | P.PN ---
Subjective Interval history: Follow up for left total hip arthroplasty. Patient is currently doing well. Sitting in her chair. No chest pain, shortness of breath, fever or chills. She is currently on 2L of O2 via NC. She does not typically use any supplemental oxygen at home. Physical Exam Vital signs: Vital Signs 04/09/18 16:00 04/09/18 16:38 04/09/18 20:00 Temperature 97.2 F L 97.2 F L Pulse Rate 55 L 66 Respiratory Rate 18 17 Blood Pressure 159/69 H 136/64 Pulse Oximetry 100 97 100 04/10/18 00:00 04/10/18 04:00 04/10/18 08:00 Temperature 97.3 F L 97.7 F 97.7 F Pulse Rate 81 85 76 Respiratory Rate 15 18 Blood Pressure 142/64 H 145/69 H 138/65 Pulse Oximetry 97 98 04/10/18 09:53 Temperature Pulse Rate Respiratory Rate Blood Pressure Pulse Oximetry 98 Intake & Output 04/09/18 04/10/18 04/10/18 18:59 06:59 18:59 Intake Total 2736.13 / 2736.13 340 / 340 Output Total 151 / 151 Balance 2585.13 / 2585.13 340 / 340 Weight 61.4 kg Intake: IV 256.13 / 256.13 100 / 100 Cyklokapron Inj 613 MG In NS 106.13 / 106.13 Inj 100 ML @ 200 mls/hr IV.SIG ONCE SIA Rx#:[id number] Ancef 2 GM Premix Inj 2 gm In 50 / 50 50 ml @ 100 mls/hr IV.SIG HAT AND CAP PARTS CUTTER HAND SIA Rx#:[id number] Ancef Inj 1,000 MG In NS Inj 100 / 100 100 / 100 100 ML @ 200 mls/hr IV.SIG Q6H SIA Rx#:[id number] Oral 480 / 480 240 / 240 Anesthesia Amount 1999 / 1999 Output: Urine / Estimated Blood Loss 150 / 150 Other: # Voids 5 Date of Last Bowel Movement 04/08/18 04/08/18 # Bowel Movements 0 Narrative: GENERAL: This is a well-nourished, well-developed patient, in no apparent distress. SKIN: Warm and dry HEENT: Normocephalic. Pupils equal round and reactive. Nose without bleeding. Airway patent. NECK: Trachea midline. CARDIOVASCULAR: Regular rate and rhythm without murmurs, gallops, or rubs. RESPIRATORY: Poor air entry. No wheezes, rales, or rhonchi. GASTROINTESTINAL: Abdomen soft, non-tender, nondistended. Bowel Sounds normoactive x4. MUSCULOSKELETAL: Extremities without clubbing, cyanosis. Left lower extremity trace edema. NEUROLOGICAL: Awake and alert. Oriented to time, place, person. No focal neuro deficit. Moves all extremities. Normal speech. Results - Labs CBC & Chem 7: 04/10/18 05:40 Laboratory Results - last 24 hr 04/10/18 05:40 Hgb 10.1 L Hct 29.8 L - Procedures Left total hip arthroplasty using [place] prosthesis on 04/09/2018 Assessment and Plan - Plan Patient is a 77 yo female with PMHX of HTN, GERD, migraines, hiatal hernia who came in for elective surgery for Left hip osteoarthritis. Status post left total hip arthroplasty, Dr. Floyd, 04/09/18 Left hip osteoarthritis, pain -Orthopedic surgery following -Pain management with bowel regimen, currently on [place] 7.5/325 mg with breakthrough medication morphine and also on Toradol. -PT eval and treat Mild hypoxia - Currently on 2 L of O2. We will try to wean her off O2. Encouraged patient to use Incentive spirometer. Migraines -Continue home medication, Fioricet History of GERD resolved with Having gluten-free diet. Full code. Aspirin 81mg BID. Discussed with RN regarding supplemental O2 and lack of BM.
[2018-04-10] MEDS: Doxazosin 4 MG Tablet PO SCH (21:26)
[2018-04-10] MEDS: Gabapentin 300 MG Capsule PO SCH (21:26)
[2018-04-11] MEDS: Ketorolac Inj 30 MG/ML (IVP) Vial IV.PUSH SCH (04:04)
[2018-04-11 05:08] LABS: Hematocrit 30.1 % (35.0-46.0); Hemoglobin 10.2 gm/dL (11.6-15.3)
--- NOTE | 2018-04-11 07:55 | P.PNOP ---
Subjective Interval history: Postoperative day 2. The patient is seen at bedside with her and daughter in attendance. He complains of some groin pain. If she is lying still, she does not have much pain. Her major complaint is that she has not moved her bowels and that she feels bloated. She lacks an appetite. Physical Exam Vital signs: Vital Signs 04/10/18 08:00 04/10/18 09:53 04/10/18 13:21 Temperature 97.7 F Pulse Rate 76 77 Respiratory Rate 18 20 Blood Pressure 138/65 125/59 L Pulse Oximetry 98 04/10/18 16:00 04/10/18 20:00 04/10/18 21:57 Temperature 100.1 F H 97.8 F Pulse Rate 78 68 Respiratory Rate 18 20 17 Blood Pressure 158/70 H 139/62 Pulse Oximetry 97 90 L 04/10/18 23:30 04/11/18 00:00 04/11/18 04:34 Temperature 98.5 F Pulse Rate 61 Respiratory Rate 17 16 17 Blood Pressure 105/53 L Pulse Oximetry 93 L Intake & Output 04/10/18 04/11/18 04/11/18 18:59 06:59 18:59 Weight 66.9 kg Other: # Voids 0 # Incontinent Voids 2 Date of Last Bowel Movement 04/08/18 04/08/18 # Bowel Movements 0 # Incontinent Bowel Movements 1 Narrative: She is resting comfortably, supine in bed. The neurovascular status is intact. Her foot motion is normal. The dressing is dry and intact. There is no erythema nor induration at this time. Results - Labs CBC & Chem 7: 04/11/18 03:59 Laboratory Results - last 24 hr 04/11/18 03:59 Hgb 10.2 L Hct 30.1 L - Procedures Left total hip arthroplasty using Jillian prosthesis on 04/09/2018 Assessment and Plan - Ortho Post Op Day # 2 - Problem List (1) Status post total hip replacement, left Code(s): Z96.642 - Presence of left artificial hip joint Status: Acute (2) Primary osteoarthritis of left hip Code(s): M16.12 - Unilateral primary osteoarthritis, left hip Status: Resolved - Assessment and Plan Condition: Good. Orthopedically stable. DVT prophylaxis: TEDs, aspirin, sequentials. Discharge plans: Home with home health care. An appointment was scheduled through the office. Prescriptions: [place] 7.5/325; Patient is having significant pain caused by recent surgery which will last more than 3 days. Trial of Tylenol has not helped. I believe that it is medically necessary to treat patients pain because it is affecting patients ability to participate in postoperative rehabilitation and perform activities of daily living in a comfortable and efficient manner. I have discussed her condition with her and her . Will try to move her bowels and will probably be discharged home with home health care today. Discussed this with the charge nurse.
[2018-04-11] MEDS: Senna/Docusate Sodium 8.6/50 MG Tablet PO SCH ×2 (08:14→21:35)
[2018-04-11] MEDS: Ferrous Sulfate 325 MG Tablet PO SCH (08:14)
--- NOTE | 2018-04-11 09:48 | P.PN ---
Subjective Interval history: Follow up for left total hip arthroplasty. Patient is currently doing well. She is on room air and ambulating with physical therapy. After she returned to her chair oxygenation was briefly in the 88-90 range but quickly recovered to 95 range. No cough, fever or chills. Physical Exam Vital signs: Vital Signs 04/10/18 09:53 04/10/18 13:21 04/10/18 16:00 Temperature 100.1 F H Pulse Rate 77 78 Respiratory Rate 20 18 Blood Pressure 125/59 L 158/70 H Pulse Oximetry 98 97 04/10/18 20:00 04/10/18 21:57 04/10/18 23:30 Temperature 97.8 F Pulse Rate 68 Respiratory Rate 20 17 17 Blood Pressure 139/62 Pulse Oximetry 90 L 04/11/18 00:00 04/11/18 04:34 Temperature 98.5 F Pulse Rate 61 Respiratory Rate 16 17 Blood Pressure 105/53 L Pulse Oximetry 93 L Intake & Output 04/10/18 04/11/18 04/11/18 18:59 06:59 18:59 Weight 66.9 kg Other: # Voids 0 # Incontinent Voids 2 Date of Last Bowel Movement 04/08/18 04/08/18 # Bowel Movements 0 # Incontinent Bowel Movements 1 Narrative: GENERAL: Alert, oriented 3, NAD. SKIN: Warm and dry. HEAD: Normocephalic. EYES: No scleral icterus. No injection or drainage. NECK: Supple, trachea midline. No JVD or lymphadenopathy. CARDIOVASCULAR: Regular rate and rhythm without murmurs, gallops, or rubs. RESPIRATORY: Breath sounds equal bilaterally. No accessory muscle use. GASTROINTESTINAL: Abdomen soft, non-tender, nondistended. MUSCULOSKELETAL: No cyanosis, or edema. BACK: Nontender without obvious deformity. No CVA tenderness. Results - Labs CBC & Chem 7: 04/11/18 03:59 Laboratory Results - last 24 hr 04/11/18 03:59 Hgb 10.2 L Hct 30.1 L - Procedures Left total hip arthroplasty using Jillian prosthesis on 04/09/2018 Assessment and Plan - Plan Patient is a 77 yo female with PMHX of HTN, GERD, migraines, hiatal hernia who came in for elective surgery for Left hip osteoarthritis. Status post left total hip arthroplasty, Dr. Floyd, 04/09/18 Left hip osteoarthritis, pain -Orthopedic surgery following -Pain management with bowel regimen, currently on [place] 7.5/325 mg with breakthrough medication morphine and also on Toradol. -Zofran for nausea. -PT eval and treat Mild hypoxia - on room air. Will obtain a CXR. Encouraged patient to use incentive spirometry more often. Migraines -Continue home medication, Fioricet History of GERD resolved with Having gluten-free diet. Full code. Aspirin 81mg BID.
--- NOTE | 2018-04-11 11:49 | XR ---
EXAM DATE: 04/11/2018 11:46 AM EDT AGE/SEX: 77 years / Female INDICATIONS: . Short of breath. CLINICAL DATA: This is the patient's subsequent encounter. Patient reports that signs and symptoms h ave been present for 3 days and indicates a pain score of 2/10. MEDICAL/SURGICAL HISTORY: None. . Total hip. COMPARISON: No prior exams available for comparison. FINDINGS: Minimal linear parenchymal opacity at the left lung base. The cardiomediastinal contours are unremark able. Osseous structures are intact. CONCLUSION: 1. Minimal left lung base atelectasis/scarring. Electronically signed by: Mario Alvarado MD 04/11/2018 11:48 AM EDT
[2018-04-11] MEDS: Butalbital/APAP/Caff 50/325/40 MG Tablet PO PRN (17:09)
[2018-04-11] MEDS: Doxazosin 4 MG Tablet PO SCH (21:35)
[2018-04-11] MEDS: Gabapentin 300 MG Capsule PO SCH (21:35)
--- NOTE | 2018-04-12 07:52 | P.PNOP ---
Subjective Interval history: She is doing well. She is making better progress with therapy. She was able to walk 80 feet. She did have a migraine which interfered with discharge. Her nausea and vomiting has improved. Still has some constipation. Physical Exam Vital signs: Vital Signs 04/11/18 09:00 04/11/18 16:00 04/11/18 17:40 Temperature 97.8 F 98.8 F Pulse Rate 69 82 Respiratory Rate 16 20 18 Blood Pressure 160/72 H 151/78 H Pulse Oximetry 95 94 L 04/11/18 20:00 04/12/18 00:00 04/12/18 03:00 Temperature 97.9 F 97.6 F Pulse Rate 80 72 Respiratory Rate 20 18 17 Blood Pressure 162/74 H 124/56 L Pulse Oximetry 91 L 96 Intake & Output 04/11/18 04/12/18 04/12/18 18:59 06:59 18:59 Intake Total 1360 / 1360 Output Total 300 / 300 Balance -300 / -300 1360 / 1360 Weight 66.9 kg Intake: IV 1000 / 1000 LR 1000 mL Inj 1,000 ML @ 30 1000 / 1000 mls/hr IV.SIG .Q24H SIA Rx#: [id number] Oral 360 / 360 Output: Emesis 300 / 300 Other: # Voids 3 2 Date of Last Bowel Movement 04/08/18 # Emeses 1 Narrative: She is resting comfortably, supine in bed. The dressing is dry and intact. There is no erythema or induration. Her neurovascular status remains intact. Results - Labs CBC & Chem 7: 04/11/18 03:59 - Imaging Impressions Chest X-Ray 04/11/18 00:00 CONCLUSION: 1. Minimal left lung base atelectasis/scarring. - Procedures Left total hip arthroplasty using [place] prosthesis on 04/09/2018 Assessment and Plan - Ortho Post Op Day # 3 - Problem List (1) Status post total hip replacement, left Code(s): Z96.642 - Presence of left artificial hip joint Status: Acute (2) Primary osteoarthritis of left hip Code(s): M16.12 - Unilateral primary osteoarthritis, left hip Status: Resolved - Assessment and Plan Condition: Good. Orthopedically stable. DVT prophylaxis: TEDs, aspirin, sequentials. Discharge plans: Home with home health care. An appointment was scheduled through the office. Prescriptions: [place] 7.5/325; Patient is having significant pain caused by recent surgery which will last more than 3 days. Trial of Tylenol has not helped. I believe that it is medically necessary to treat patients pain because it is affecting patients ability to participate in postoperative rehabilitation and perform activities of daily living in a comfortable and efficient manner. I have discussed her condition with her, her and daughter. Will try to move her bowels and will probably be discharged home with home health care today.
[2018-04-12] MEDS: Butalbital/APAP/Caff 50/325/40 MG Tablet PO PRN (08:03)
[2018-04-12] MEDS: Ferrous Sulfate 325 MG Tablet PO SCH (08:04)
[2018-04-12] MEDS: Senna/Docusate Sodium 8.6/50 MG Tablet PO SCH ×2 (08:04→21:10)
--- NOTE | 2018-04-12 14:29 | P.PN ---
Subjective Interval history: Follow up for left total hip arthroplasty. Patient is currently doing well. However, she has yet to have a BM. Milk of Mag did not help. She will wait a bit then try to enema or suppository. No fever, chills, cough. Physical Exam Vital signs: Vital Signs 04/11/18 16:00 04/11/18 17:40 04/11/18 20:00 Temperature 98.8 F 97.9 F Pulse Rate 82 80 Respiratory Rate 20 18 20 Blood Pressure 151/78 H 162/74 H Pulse Oximetry 94 L 91 L 04/12/18 00:00 04/12/18 03:00 04/12/18 08:00 Temperature 97.6 F 97.9 F Pulse Rate 72 72 Respiratory Rate 18 17 16 Blood Pressure 124/56 L 141/63 H Pulse Oximetry 96 91 L 04/12/18 08:33 04/12/18 14:22 Temperature 99.6 F Pulse Rate 75 Respiratory Rate 18 16 Blood Pressure 112/52 L Pulse Oximetry 92 L Intake & Output 04/11/18 04/12/18 04/12/18 18:59 06:59 18:59 Intake Total 1360 / 1360 Output Total 300 / 300 Balance -300 / -300 1360 / 1360 Weight 66.9 kg Intake: IV 1000 / 1000 LR 1000 mL Inj 1,000 ML @ 30 1000 / 1000 mls/hr IV.SIG .Q24H SIA Rx#: [id number] Oral 360 / 360 Output: Emesis 300 / 300 Other: # Voids 3 2 Date of Last Bowel Movement 04/08/18 # Emeses 1 Narrative: GENERAL: Alert, Oriented x 3, NAD. SKIN: Warm and dry. HEAD: Normocephalic. EYES: No scleral icterus. No injection or drainage. NECK: Supple, trachea midline. No JVD or lymphadenopathy. CARDIOVASCULAR: Regular rate and rhythm without murmurs, gallops, or rubs. RESPIRATORY: Moderate air entry. No accessory muscle use. GASTROINTESTINAL: Abdomen soft, non-tender, nondistended. MUSCULOSKELETAL: No cyanosis, or edema. BACK: Nontender without obvious deformity. No CVA tenderness. Results - Labs CBC & Chem 7: 04/11/18 03:59 - Procedures Left total hip arthroplasty using [place] prosthesis on 04/09/2018 Assessment and Plan - Plan Patient is a 77 yo female with PMHX of HTN, GERD, migraines, hiatal hernia who came in for elective surgery for Left hip osteoarthritis. Status post left total hip arthroplasty, Dr. Floyd, 04/09/18 Left hip osteoarthritis, pain -Orthopedic surgery following -Pain management with bowel regimen, currently on [place] 7.5/325 mg with breakthrough medication morphine and also on Toradol. -Zofran for nausea. -PT eval and treat Mild hypoxia - on room air. CXR shows atelectasis. Encouraged patient to use Incentive spirometry. Migraines -Continue home medication, Fioricet Constipation - Dulcolax supp, Fleet Enema. Full code. Aspirin 81mg BID. Patient can be discharged home with home health once she has a BM. Will give patient Form [id number] should she decide to consider SNF after she goes home with home health. PT is recommending SNF but patient wants to go home with home health.
--- NOTE | 2018-04-12 15:31 | XR ---
EXAM DATE: 04/12/2018 3:23 PM EDT AGE/SEX: 77 years / Female INDICATIONS: Vomting, obstruction. CLINICAL DATA: This is the patient's initial encounter. Patient reports that signs and symptoms have been present for 1 day and indicates a pain score of Nonresponsive. MEDICAL/SURGICAL HISTORY: Non-responsive. Non-responsive. COMPARISON: No prior exams available for comparison. FINDINGS: The cecum has a transverse lie and is air-filled. There is moderate amount retained stool throughout the colon. There is no pathologic distention evidence of free air or mass effect. Degenerative changes are seen in the lumbar spine. Left hip prosthesis is noted. CONCLUSION: Moderate amount retained stool otherwise no evidence of obstructive gas pattern Status post left hip replacement. Electronically signed by: Ebre Curry MD 04/12/2018 3:30 PM EDT
[2018-04-12] MEDS ORDERED: Mineral Oil Enema 118 ML Bottle RECTAL ONE (15:42)
[2018-04-12] MEDS: Gabapentin 300 MG Capsule PO SCH (21:09)
[2018-04-12] MEDS: Doxazosin 4 MG Tablet PO SCH (21:09)
--- NOTE | 2018-04-13 06:50 | P.PNOP ---
Subjective Interval history: Postoperative day 4 She indicates that she is feeling better today. She has less pain in her hip. Gastrointestinal complaints have improved. She has had bowel movements. She is somewhat lethargic right now. Physical Exam Vital signs: Vital Signs 04/12/18 08:00 04/12/18 08:33 04/12/18 12:00 Temperature 97.9 F 99.4 F Pulse Rate 72 88 Respiratory Rate 16 18 Blood Pressure 141/63 H 127/59 L Pulse Oximetry 91 L 91 L 04/12/18 13:56 04/12/18 14:22 04/12/18 20:00 Temperature 98.7 F 99.6 F 99.4 F Pulse Rate 93 H 75 95 H Respiratory Rate 14 16 18 Blood Pressure 139/64 112/52 L 136/63 Pulse Oximetry 95 92 L 95 04/13/18 00:00 04/13/18 01:30 04/13/18 04:00 Temperature 98.9 F 98.7 F Pulse Rate 101 H 89 Respiratory Rate 18 15 18 Blood Pressure 158/79 H 183/85 H Pulse Oximetry 97 96 Intake & Output 04/12/18 04/12/18 04/13/18 06:59 18:59 06:59 Intake Total 1360 / 1360 480 / 480 Balance 1360 / 1360 480 / 480 Weight 66.9 kg Intake: IV 1000 / 1000 LR 1000 mL Inj 1,000 ML @ 30 1000 / 1000 mls/hr IV.SIG .Q24H SIA Rx#: [id number] Oral 360 / 360 480 / 480 Other: # Voids 2 1 Date of Last Bowel Movement 04/08/18 04/08/18 # Bowel Movements 0 Narrative: She is resting comfortably, supine in bed. The dressing is dry and intact. Her neurovascular status is intact. Results - Labs CBC & Chem 7: 04/11/18 03:59 - Imaging Impressions Abdomen X-Ray 04/12/18 14:34 CONCLUSION: Moderate amount retained stool otherwise no evidence of obstructive gas pattern Status post left hip replacement. - Procedures Left total hip arthroplasty using [place] prosthesis on 04/09/2018 Assessment and Plan - Ortho Post Op Day # 4 - Problem List (1) Status post total hip replacement, left Code(s): Z96.642 - Presence of left artificial hip joint Status: Acute (2) Primary osteoarthritis of left hip Code(s): M16.12 - Unilateral primary osteoarthritis, left hip Status: Resolved - Assessment and Plan Condition: Good. Orthopedically stable. DVT prophylaxis: TEDs, aspirin, sequentials. Discharge plans: Home with home health care. An appointment was scheduled through the office. Prescriptions: [place] 7.5/325; Patient is having significant pain caused by recent surgery which will last more than 3 days. Trial of Tylenol has not helped. I believe that it is medically necessary to treat patients pain because it is affecting patients ability to participate in postoperative rehabilitation and perform activities of daily living in a comfortable and efficient manner. She will probably be discharged home with home health care today.
[2018-04-13] MEDS ORDERED: Magnesium Citrate Liq 300 ML Bottle PO ONE (07:25)
[2018-04-13] MEDS: Ferrous Sulfate 325 MG Tablet PO SCH (09:36)
[2018-04-13 12:18] VITALS: BP 138/64; PULSE 86; RESP 16; TEMP 98.2; O2SAT 91
== END 2018-04-13 14:37 | disposition home health service (06) ==
LOC: HSDI 05:27 → N06 12:45
PROVIDERS: ADMIT Orthopaedic Surgery; ATTEND Orthopaedic Surgery